=== PATIENT | male | born 1995 | race African-American/Black ===

== ENCOUNTER 2017-01-07 16:57 | Emergency (ER) | payer MEDICAID ==
[~2017-01-07] VITALS: Ht 182.9 cm; Wt 62.0 kg
[2017-01-07 17:00] VITALS: BP 109/69
[2017-01-07] MEDS ORDERED: CEFTRIAXONE 250 MG ONE (17:42)
[2017-01-07] MEDS ORDERED: AZITHROMYCIN 500 MG TABLET ONE (17:42)
[2017-01-07] MEDS ORDERED: CEFTRIAXONE 250 MG IM ONE (18:00)
[2017-01-07] MEDS ORDERED: AZITHROMYCIN 500 MG TABLET PO ONE (18:00)
== END 2017-01-07 18:32 | disposition home or self-care (01) ==
LOC: ED 18:00
DX: Z20.2 Contact with and (suspected) exposure to infections with a predominantly sexual mode of transmission (principal)
CPT/HCPCS: 87491; 87591; 96372; 99284; J0696